=== PATIENT | male | born 1945 | race Caucasian/White ===

== ENCOUNTER → 2016-05-01 | Outpatient (CLI) | payer OTHER ==
[~2016-05-01] MED LIST: AMLO-110 PO; ASCA500 PO; ASPI81TA28 PO; BCTROWC; CLB/200 PO; CTP1 PO; DPKSR250 PO; FEXO-101 PO; FINA5TAB PO; HYDC25 PO; KETO0.0216 OP; LABE1TAB28 PO; LEVO137T3 PO; MOEX15TA4 PO; MULT-506 PO; NITR0.4S UT; OMEG10007 PO; POTA20TA16 PO; RANI300T2 PO
--- NOTE | 2016-05-01 12:40 | DIAGNOSTIC IMAGING REPORT ---
Study: CT sinuses with three-dimensional reconstruction. Using protocol. INDICATION: Chronic sinusitis. FINDINGS: There is acquired transaxially with multi axial reformatted images. Images acquired per fusion protocol. Comparison to a prior study of 12/28/2015 There are findings suggesting partial ethmoidectomies. Hyperplastic change and a polypoid change of the nasal turbinates are present. This appears similar compared to the prior study. The ostiomeatal units are occluded bilaterally. This is unchanged. Orbital margins appear to be intact. There is no evidence for bony destructive process.\E\Sinuses are considered generally clear. Sphenoid and frontal sinuses are also clear. 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 2. Moderate hyperplastic polypoid change of the nasal turbinates similar as compared to the prior exam. 3. All remaining sinuses are considered clear. 4. Very mild nasal septal displacement to the left unchanged. 5. The ostiomeatal units demonstrate soft tissue occlusion Electronically signed by: Pedro Berg M.D. 05/01/2016 12:38 PM Dictated Date/Time: 05/01/2016 12:32 PM
== END | disposition home or self-care (01) ==
LOC: C.CTS 11:59
PROVIDERS: ATTEND Surgery
DX: J32.9 Chronic sinusitis, unspecified (principal)

== ENCOUNTER → 2016-06-07 | Day surgery (SDC) | payer OTHER ==
[2016-05-18 12:05] VITALS: Ht 167.6 cm; Wt 84.1 kg
[~2016-06-07] VITALS: Ht 167.6 cm; Wt 84.1 kg
[~2016-06-07] MED LIST changes: +500ML BSS 0.3ML EPI 1:1000PF IRRIG ONE; +ACETAMINOPHEN 325 MG TAB PO PRN; +AMVISC PLUS 0.8ML SYRINGE INT OCU ONE; +ATROPINE SULFATE 0.1 MG/ML 5ML SYR IV PRN; +BSS FLUSH ONE; +ENDOCOAT 0.85ML SYRINGE INT OCU ONE; +EpINEphrine INJ 1MG/ML AMP 1 MG/ML AMP ONE; +LACTATED RINGER'S 1000ML 500 ML IV SCH; +LIDOCAINE 4% OP SOLN DROP CHARGE ONE; +LIDOCAINE 4% OP SOLN DROP CHARGE OPL SCH; +LIDOCAINE HCL 1% MPF 2 ML VIAL ONE; +MIDAZOLAM HCL 1 MG/ML 2ML VIAL ONE; +MIX: 4ML BSS 1ML EPI 1:1000 PF TOP ONE; +MOXIFLOXACIN OPH SOLN PER DROP CHARGE ONE; +MOXIFLOXACIN OPH SOLN PER DROP CHARGE OPL SCH; +POVIDONE-IODINE OP SOLN 30 ML BTL ONE; +PROPARACAINE 0.5% OP SOLN PER DROP CHARGE OPL SCH; +TOBRAMYCIN/DEXAMETHASONE OPH OINT PER APPLN CHARGE ONE; +VISCOAT 0.5ML SYRINGE INT OCU ONE
--- NOTE | 2016-06-07 09:51 | History & Physical Bridge - SC ---
H&P Re-Evaluation Bridge Note: I have examined the patient, reviewed the History & Physical and in the interval since the performance of the History & Physical I have noted the following changes of clinical significance: No changes noted
[2016-06-07] MEDS: PHENYLEPHRINE HCL 10% OP SOLN PER DROP CHARGE OPL SCH ×3 (09:52→10:02)
[2016-06-07] MEDS: TROPICAMIDE 1% OP SOLN PER DROP CHARGE OPL SCH ×2 (09:53→10:03)
[2016-06-07] MEDS: CYCLOPENTOLATE HCL 1% OP SOLN PER DROP CHARGE OPL SCH ×3 (09:54→10:04)
[2016-06-07] MEDS: MOXIFLOXACIN OPH SOLN PER DROP CHARGE OPL SCH ×3 (09:55→10:05)
--- NOTE | 2016-06-07 11:02 | [facility] Post Operative Brief Note ---
Immediate Operative Summary Operative Date Jun 07, 2016. Pre-Operative Diagnosis Left Eye Cataract Post-Operative Diagnosis Same Procedure(s) Performed Left Eye Cataract Phacoemulsification With Intraocular Lens Implant Surgeon Dr. Franco Physical Therapist Aide Surgeon(s) None Estimated Blood Loss None Findings left cataract Specimens None Complication(s) None Disposition
--- NOTE | 2016-06-07 11:03 | [facility] Operative Report ---
Operative Report Date of Service Jun 07, 2016. Operative Report Phaco with monofocal IOL DATE OF OPERATION: 06/07/16 PREOPERATIVE DIAGNOSIS: Senile nuclear cataract, left eye POSTOPERATIVE DIAGNOSIS: Senile nuclear cataract, left eye PROCEDURE PERFORMED: Phacoemulsification with intraocular lens implantation, left eye SURGEON: Dr. Sukumar Franco ANESTHESIA: Topical with 1% intracameral lidocaine and monitored anesthesia care COMPLICATIONS: None DESCRIPTION OF PROCEDURE: After positively identifying the patient both verbally and by wristband in the preoperative area, the left eye was marked as the operative eye. The patient was then brought back to the operating room by the anesthesia and nursing staff where they were given a drop of Lidocaine and betadine into the operative eye. They were then sterilely prepped and draped in the standard fashion typical for ophthalmic surgery. Steri-strips were placed along the upper eyelids to keep the lashes back, and a lid speculum was placed into the operative eye. At this point, a documented time out was performed with members of the ophthalmology, nursing, and anesthesia staffs all agreeing upon the correct patient, correct location for surgery, correct procedure, and correct type and power of intraocular lens to be implanted. The microscope was then swung into position. First, a paracentesis wound was made using a sideport blade. Then, in sequence, 1% preservative-free lidocaine followed by Endocoat viscoelastic was injected into the anterior chamber. Next , the main incision was made with a keratome blade in triplanar fashion. A Malyugin ring was inserted due to poor pupil dilation. A sharp cystotome was introduced into the eye and used to create a tear in the anterior capsule, which was directed into a continuous curvilinear capsulorrhexis using Utrata forceps. Hydrodissection was then performed with BSS on a flat-tip cannula. Next, the phacoemulsification handpiece was introduced into the eye and used to remove the nucleus in a [id number] fashion. This was done without complication and then the irrigation-aspiration handpiece was introduced into the eye and used to remove all remaining cortical and epinuclear material. Amvisc was then injected into the anterior chamber as well as into the capsular bag and using the lens injector system, an MX60 17.5 D lens, serial number [id number], and expiration date 09/2018 was injected into the capsular bag and rotated into the correct position. The Malyugin ring was removed. Next, the irrigation-aspiration handpiece was used to remove all remaining Amvisc. BSS was used to hydrate the main wound, and then BSS was injected into the paracentesis site to reach physiologic pressure and then the main wound was checked and found to be watertight. The patient was given drops of Vigamox and Tobradex ointment into the operative eye, and then the surrounding area was cleaned and dried. A clear plastic shield was placed over the eye and the patient was then sat up and taken from the operating room by the anesthesia staff having tolerated the procedure well and suffering no complications. DISPOSITION: The patient was returned to the recovery room in stable condition. I attest to the content of the Intraoperative Record and any orders documented therein. Any exceptions are noted below.
--- NOTE | 2016-06-07 11:04 | Discharge Instructions-SurgCtr ---
Discharge Instructions Date of Service Jun 07, 2016. Visit Reason for Visit: Cataract Left Eye Discharge Discharge Diagnosis / Problem: left cataract Discharge Goals Goal(s): Decrease discomfort, Improve function Medications Stopped Medications Name(s): Stopped Tumeric for three days. Activity Recommendations Activity Limitations: as noted below Anesthesia . Post Anesthesia Instructions: If you have had General Anesthesia or IV Sedation: * Do not drive today. * Resume driving when surgeon permits. * Do not make important decisions or sign legal documents today. * Call surgeon for: 1. Temperature elevations greater than 101 degrees F. 2. Uncontrollable pain. 3. Excessive bleeding. 4. Persistent nausea and vomiting. 5. Medication intolerance (nausea, vomiting or rash). * For nausea and vomiting use only clear liquids such as: tea, soda, bouillon until nausea subsides, then gradually increase diet as tolerated. * If you have any concerns or questions, call your surgeon's office. If physician is unavailable and it is an emergency, call 911 or go to the nearest emergency room. . Instructions / Follow-Up Instructions / Follow-Up ACTIVITY RECOMMENDATIONS: * Light activities. * You may walk outside, read, watch television. * You may notice redness on the white part of the eye and some blurry vision - this is normal. MEDICATIONS: Resume previous medications unless instructed otherwise by your surgeon. Start all eye drops at 1 pm today: * Eye drops (today): Prednisone - one drop in operative eye every 2 hours while awake Polytrim - one drop in operative eye every 2 hours while awake SPECIAL CARE INSTRUCTIONS: * Tape plastic shield over eye to sleep at night. Call your doctor at with any concerns or problems. FOLLOW UP VISIT: Follow-up with Dr Franco at [facility] as scheduled. Diet Recommendations Home Diet: no limitations Procedures Procedures Performed: Left Eye Cataract Phacoemulsification With Intraocular Lens Implant Pending Studies Studies pending at discharge: no Medical Emergencies . Who to Call and When: Medical Emergencies: If at any time you feel your situation is an emergency, please call 911 immediately. . Non-Emergent Contact Non-Emergency issues call your: Surgeon . . "Provider Documentation" section prepared by Sukumar Franco.
[2016-06-07 11:06] VITALS: TEMP 36.5
--- NOTE | 2016-06-07 11:22 | Anesthesia Progress Nt - [facility] ---
Anesthesia Post Op Note Date & Time Jun 07, 2016 at 11:21 Vital Signs Pain Intensity: 0 Vital Signs Past 12 Hours Date Time Temp Pulse Resp B/P Pulse Ox O2 Delivery O2 Flow Rate FiO2 06/07/16 11:06 36.5 74 18 148/81 95 Room Air 06/07/16 09:50 36.8 82 20 121/83 95 Room Air Notes Mental Status: alert / awake / arousable, participated in evaluation Pt Amnestic to Procedure: Yes Nausea / Vomiting: adequately controlled Pain: adequately controlled Airway Patency, RR, SpO2: stable & adequate BP & HR: stable & adequate Hydration State: stable & adequate Anesthetic Complications: no major complications apparent
[2016-06-07 11:24] VITALS: BP 148/80; PULSE 67; O2SAT 96
== END | disposition home or self-care (01) ==
LOC: X.SURG 09:17
PROVIDERS: ATTEND Ophthalmology
DX: H25.12 Age-related nuclear cataract, left eye (principal); H57.9 Unspecified disorder of eye and adnexa; H52.209 Unspecified astigmatism, unspecified eye; H43.399 Other vitreous opacities, unspecified eye; I10 Essential (primary) hypertension; I51.9 Heart disease, unspecified; Z90.49 Acquired absence of other specified parts of digestive tract; Z98.890 Other specified postprocedural states

== ENCOUNTER → 2016-07-19 | Day surgery (SDC) | payer OTHER ==
[2016-07-14 10:39] VITALS: Ht 167.6 cm; Wt 84.1 kg
[~2016-07-19] VITALS: Ht 167.6 cm; Wt 84.1 kg
[~2016-07-19] MED LIST changes: -BCTROWC; +FENTANYL CITRATE INJ 50 MCG/1 ML 2 ML VIAL ONE; -LIDOCAINE 4% OP SOLN DROP CHARGE OPL SCH; +LIDOCAINE 4% OP SOLN DROP CHARGE OPR SCH; -MOXIFLOXACIN OPH SOLN PER DROP CHARGE OPL SCH; -PROPARACAINE 0.5% OP SOLN PER DROP CHARGE OPL SCH; +PROPARACAINE 0.5% OP SOLN PER DROP CHARGE OPR SCH; -VISCOAT 0.5ML SYRINGE INT OCU ONE
[2016-07-19] MEDS: PHENYLEPHRINE HCL 2.5% OP SOLN PER DROP CHARGE OPR SCH ×3 (10:21→10:31)
[2016-07-19] MEDS: TROPICAMIDE 1% OP SOLN PER DROP CHARGE OPR SCH ×3 (10:22→10:32)
[2016-07-19] MEDS: CYCLOPENTOLATE HCL 1% OP SOLN PER DROP CHARGE OPR SCH ×3 (10:23→10:33)
[2016-07-19] MEDS: MOXIFLOXACIN OPH SOLN PER DROP CHARGE OPR SCH ×3 (10:24→10:34)
--- NOTE | 2016-07-19 11:38 | [facility] Post Operative Brief Note ---
Immediate Operative Summary Operative Date July 19, 2016. Pre-Operative Diagnosis Right Eye Cataract Post-Operative Diagnosis same Procedure(s) Performed Right Cataract Phacoemulsification With Intraocular Lens Implant Surgeon Dr Franco Assistant Hairstylist Surgeon(s) none Estimated Blood Loss 0 Findings right cataract Specimens none Complication(s) None Disposition
[2016-07-19 11:39] VITALS: TEMP 36.4
--- NOTE | 2016-07-19 11:39 | [facility] Operative Report ---
Operative Report Date of Service July 19, 2016. Operative Report Phaco with monofocal IOL DATE OF OPERATION: 07/19/16 PREOPERATIVE DIAGNOSIS: Senile nuclear cataract, right eye POSTOPERATIVE DIAGNOSIS: Senile nuclear cataract, right eye PROCEDURE PERFORMED: Phacoemulsification with intraocular lens implantation, right eye SURGEON: Dr. Sukumar Franco ANESTHESIA: Topical with 1% intracameral lidocaine and monitored anesthesia care COMPLICATIONS: None DESCRIPTION OF PROCEDURE: After positively identifying the patient both verbally and by wristband in the preoperative area, the right eye was marked as the operative eye. The patient was then brought back to the operating room by the anesthesia and nursing staff where they were given a drop of Lidocaine and betadine into the operative eye. They were then sterilely prepped and draped in the standard fashion typical for ophthalmic surgery. Steri-strips were placed along the upper eyelids to keep the lashes back, and a lid speculum was placed into the operative eye. At this point, a documented time out was performed with members of the ophthalmology, nursing, and anesthesia staffs all agreeing upon the correct patient, correct location for surgery, correct procedure, and correct type and power of intraocular lens to be implanted. The microscope was then swung into position. First, a paracentesis wound was made using a sideport blade. Then, in sequence, 1% preservative-free lidocaine followed by Endocoat viscoelastic was injected into the anterior chamber. Next , the main incision was made with a keratome blade in triplanar fashion. A Malyugin ring was inserted due to poor pupil dilation. A sharp cystotome was introduced into the eye and used to create a tear in the anterior capsule, which was directed into a continuous curvilinear capsulorrhexis using Utrata forceps. Hydrodissection was then performed with BSS on a flat-tip cannula. Next, the phacoemulsification handpiece was introduced into the eye and used to remove the nucleus in a [id number]-yjp-brjxthp fashion. This was done without complication and then the irrigation-aspiration handpiece was introduced into the eye and used to remove all remaining cortical and epinuclear material. Amvisc was then injected into the anterior chamber as well as into the capsular bag and using the lens injector system, an MX60 17.5 D lens, serial number [id number], and expiration date 01/2019 was injected into the capsular bag and rotated into the correct position. The Malyugin ring was removed. Next, the irrigation-aspiration handpiece was used to remove all remaining Amvisc. BSS was used to hydrate the main wound, and then BSS was injected into the paracentesis site to reach physiologic pressure and then the main wound was checked and found to be watertight. The patient was given drops of Vigamox and Tobradex ointment into the operative eye, and then the surrounding area was cleaned and dried. A clear plastic shield was placed over the eye and the patient was then sat up and taken from the operating room by the anesthesia staff having tolerated the procedure well and suffering no complications. DISPOSITION: The patient was returned to the recovery room in stable condition. I attest to the content of the Intraoperative Record and any orders documented therein. Any exceptions are noted below.
--- NOTE | 2016-07-19 11:40 | Discharge Instructions-SurgCtr ---
Discharge Instructions Date of Service July 19, 2016. Visit Reason for Visit: Cataract Right Eye Discharge Discharge Diagnosis / Problem: right cataract Discharge Goals Goal(s): Decrease discomfort, Improve function Activity Recommendations Activity Limitations: as noted below Anesthesia . Post Anesthesia Instructions: If you have had General Anesthesia or IV Sedation: * Do not drive today. * Resume driving when surgeon permits. * Do not make important decisions or sign legal documents today. * Call surgeon for: 1. Temperature elevations greater than 101 degrees F. 2. Uncontrollable pain. 3. Excessive bleeding. 4. Persistent nausea and vomiting. 5. Medication intolerance (nausea, vomiting or rash). * For nausea and vomiting use only clear liquids such as: tea, soda, bouillon until nausea subsides, then gradually increase diet as tolerated. * If you have any concerns or questions, call your surgeon's office. If physician is unavailable and it is an emergency, call 911 or go to the nearest emergency room. . Instructions / Follow-Up Instructions / Follow-Up ACTIVITY RECOMMENDATIONS: * Light activities. * You may walk outside, read, watch television. * You may notice redness on the white part of the eye and some blurry vision - this is normal. MEDICATIONS: Resume previous medications unless instructed otherwise by your surgeon. Start all eye drops at 1:30 pm today: * Eye drops (today): Prednisone - one drop in operative eye every 2 hours while awake Polytrim - one drop in operative eye every 2 hours while awake SPECIAL CARE INSTRUCTIONS: * Tape plastic shield over eye to sleep at night. Call your doctor at with any concerns or problems. FOLLOW UP VISIT: Follow-up with Dr Franco at [facility] as scheduled. Diet Recommendations Home Diet: no limitations Procedures Procedures Performed: Right Cataract Phacoemulsification With Intraocular Lens Implant Pending Studies Studies pending at discharge: no Medical Emergencies . Who to Call and When: Medical Emergencies: If at any time you feel your situation is an emergency, please call 911 immediately. . Non-Emergent Contact Non-Emergency issues call your: Surgeon . . "Provider Documentation" section prepared by Sukumar Franco. .
--- NOTE | 2016-07-19 11:48 | Anesthesia Progress Nt - [facility] ---
Anesthesia Post Op Note Date & Time July 19, 2016 at 11:48 Vital Signs Pain Intensity: 0 Vital Signs Past 12 Hours Date Time Temp Pulse Resp B/P Pulse Ox O2 Delivery O2 Flow Rate FiO2 07/19/16 11:39 36.4 70 18 174/90 96 Room Air 07/19/16 10:13 36.4 69 20 132/86 95 Room Air Notes Mental Status: alert / awake / arousable, participated in evaluation Pt Amnestic to Procedure: Yes Nausea / Vomiting: adequately controlled Pain: adequately controlled Airway Patency, RR, SpO2: stable & adequate BP & HR: stable & adequate Hydration State: stable & adequate Anesthetic Complications: no major complications apparent
[2016-07-19 12:02] VITALS: BP 159/81; PULSE 63; O2SAT 97
== END | disposition home or self-care (01) ==
LOC: X.SURG 09:46
PROVIDERS: ATTEND Ophthalmology
DX: H25.11 Age-related nuclear cataract, right eye (principal); I25.2 Old myocardial infarction; I10 Essential (primary) hypertension; I25.10 Atherosclerotic heart disease of native coronary artery without angina pectoris; G47.33 Obstructive sleep apnea (adult) (pediatric); Z98.42 Cataract extraction status, left eye; E66.9 Obesity, unspecified; Z95.1 Presence of aortocoronary bypass graft; Z88.1 Allergy status to other antibiotic agents

== ENCOUNTER → 2016-12-15 | Day surgery (SDC) | payer OTHER ==
[2016-11-30 10:25] VITALS: Ht 167.6 cm; Wt 89.5 kg
--- NOTE | 2016-11-30 10:46 | PAT Medication Instructions ---
Service Date Nov 30, 2016. Current Home Medication List Amlodipine (Norvasc), 5 MG PO QAM Ascorbic Acid (Vitamin C), 500 MG PO LUNCH Aspirin (Aspirin Ec), 81 MG PO HS Celecoxib (CeleBREX), 200 MG PO QAM Clonidine Hcl (Catapres *), 0.1 MG PO TID Divalproex Sodium Extended Rel (Depakote Extended Rel *), 250 MG PO QAM Fexofenadine HCl (Allergy 24-Hr), 1 TAB PO QAM Finasteride (Proscar), 5 MG PO LUNCH Fish Oil ([place]-3), 1 CAP PO LUNCH Hydrochlorothiazide (Hctz *), 25 MG PO QAM Ketotifen Fumarate (Ophth) (Zaditor 0.025% Oph), 1 DROP OP Q8H PRN for ALLERGIES Labetalol (Normodyne), 200 MG PO BID Levothyroxine Sodium (Levothyroxine Sodium), 1 TAB PO QAM Moexipril Hcl (Moexipril Hcl), 15 MG PO QAM Multivitamin (Multivitamin), 1 TAB PO AFTERNON Nitroglycerin (Nitrostat), 0.4 MG UT PRN Potassium Ext Rel (Klor-Con), 20 MEQ PO AFTERNOON Ranitidine Hcl (Zantac), 300 MG PO LUNCH AND HS Medication Instructions For Your Scheduled Surgery - Hold the following medications as of 12/01/16: Fish Oil ([place]-3), 1 CAP PO LUNCH - Per surgeon's instructions: Aspirin (Aspirin Ec), 81 MG PO HS Celecoxib (CeleBREX), 200 MG PO QAM - Continue as directed: Nitroglycerin (Nitrostat), 0.4 MG UT PRN - Hold the following medications the morning of surgery: Moexipril Hcl (Moexipril Hcl), 15 MG PO QAM Multivitamin (Multivitamin), 1 TAB PO AFTERNON Potassium Ext Rel (Klor-Con), 20 MEQ PO AFTERNOON Fexofenadine HCl (Allergy 24-Hr), 1 TAB PO QAM Ascorbic Acid (Vitamin C), 500 MG PO LUNCH Hydrochlorothiazide (Hctz *), 25 MG PO QAM - Take the following medications the morning of surgery with a sip of water OTHERWISE NOTHING TO EAT OR DRINK AFTER MIDNIGHT: Amlodipine (Norvasc), 5 MG PO QAM Divalproex Sodium Extended Rel (Depakote Extended Rel *), 250 MG PO QAM Labetalol (Normodyne), 200 MG PO BID Levothyroxine Sodium (Levothyroxine Sodium), 1 TAB PO QAM Ketotifen Fumarate (Ophth) (Zaditor 0.025% Oph), 1 DROP OP Q8H PRN for ALLERGIES Finasteride (Proscar), 5 MG PO LUNCH - Take the following medications as scheduled the night before surgery: Ranitidine Hcl (Zantac), 300 MG PO LUNCH AND HS Clonidine Hcl (Catapres *), 0.1 MG PO TID Labetalol (Normodyne), 200 MG PO BID Ketotifen Fumarate (Ophth) (Zaditor 0.025% Oph), 1 DROP OP Q8H PRN for ALLERGIES If you have any questions please call us at [phone] or [phone] or [phone]
[2016-11-30 11:19] LABS: BASO % 0.6 %; BASO ABS # 0.05 K/uL (0-0.2); COMPLETE YES; EOS % 4.8 %; HEMATOCRIT 42.3 % (42-52); IG% 0.6 %; LYMPH % 16.1 %; LYMPH ABS # 1.42 K/uL (1.2-3.4); MEAN CELL VOLUME 88.9 fL (80-100); MEAN CORPUSCULAR HEMOGLOBIN 30.7 pg (25-34); MEAN CORPUSCULAR HGB CONC 34.5 g/dl (32-36); MEAN PLATELET VOLUME 10.7 fL (7.4-10.4); NEUT % 67.9 %; PLATELET COUNT 284 K/uL (130-400); RED BLOOD COUNT 4.76 M/uL (4.7-6.1); WHITE BLOOD COUNT 8.83 K/uL (4.8-10.8)
[2016-11-30 15:31] LABS: BUN/CREATININE RATIO 14.6 (10-20); CALCIUM 9.2 mg/dl (8.5-10.1); CREATININE 0.97 mg/dl (0.60-1.40); POTASSIUM 3.6 mmol/L (3.5-5.1)
[~2016-12-15] VITALS: Ht 167.6 cm; Wt 89.5 kg
[~2016-12-15] MED LIST changes: -500ML BSS 0.3ML EPI 1:1000PF IRRIG ONE; -ACETAMINOPHEN 325 MG TAB PO PRN; +ACETAMINOPHEN 500 MG TAB PO PRN; -AMVISC PLUS 0.8ML SYRINGE INT OCU ONE; -BSS FLUSH ONE; +DEXAMETHASONE SOD INJ 4 MG/ML VIAL ONE; -ENDOCOAT 0.85ML SYRINGE INT OCU ONE; +EpHEDrine SULFATE INJ 50 MG/ML AMP IV PRN; -EpINEphrine INJ 1MG/ML AMP 1 MG/ML AMP ONE; +FENTANYL CITRATE INJ 50 MCG/1 ML 2 ML VIAL IV PRN; +FLUMAZENIL 0.1 MG/1 ML 10 ML VIAL IV PRN; +LABETALOL HCL IV 5 MG/ML 20ML IV PRN; +LACTATED RINGER'S 1000ML 1,000 ML IV SCH; -LACTATED RINGER'S 1000ML 500 ML IV SCH; -LIDOCAINE 4% OP SOLN DROP CHARGE ONE; -LIDOCAINE 4% OP SOLN DROP CHARGE OPR SCH; -LIDOCAINE HCL 1% MPF 2 ML VIAL ONE; +LIDOCAINE HCL 2% 2 ML VIAL (20MG/ML) ONE; -MIX: 4ML BSS 1ML EPI 1:1000 PF TOP ONE; -MOXIFLOXACIN OPH SOLN PER DROP CHARGE ONE; +NALOXONE HCL 0.4 MG/1 ML VIAL/CARP IV PRN; +OFLOXACIN 0.3% OP SOLN 5 ML BTL ONE; +ONDANSETRON INJ 2 MG/ML 2 ML VIAL IV PRN; +ONDANSETRON INJ 2 MG/ML 2 ML VIAL ONE; +OXYMETAZOLINE HCL 0.05% NA SPR 15 ML BTL ONE; -POVIDONE-IODINE OP SOLN 30 ML BTL ONE; +PROMETHAZINE HCL INJ 12.5 MG in SODIUM CHLORIDE 0.9% 50ML 50 ML IV PRN; -PROPARACAINE 0.5% OP SOLN PER DROP CHARGE OPR SCH; +PROPOFOL IV EMULSION 10 MG/ML 20 ML VIAL IV ONE; -TOBRAMYCIN/DEXAMETHASONE OPH OINT PER APPLN CHARGE ONE
--- NOTE | 2016-12-15 09:16 | [facility] Operative Report ---
Operative Report Operative Date Dec 15, 2016. Pre-Operative Diagnosis L COM WITH EFFUSION, L ETD, L RONI, L MIXED HEARING LOSS Post-Operative Diagnosis SAME Procedure(s) Performed LEFT MYRINGOTOMY AND T-TUBE PLACEMENT Surgeon KASSANDRA Manufacturing Finance Manager Surgeon(s) NONE Estimated Blood Loss 0 Findings L RONI Specimens NONE I attest to the content of the Intraoperative Record and any orders documented therein. Any exceptions are noted below.
--- NOTE | 2016-12-15 09:18 | Discharge Instructions ---
Discharge Instructions Date of Service Dec 15, 2016. Admission Reason for Admission: Chronic O.m. With Effusion Left Hear; Mixed H/L Discharge Discharge Diagnosis / Problem: SAME Discharge Goals Goal(s): Therapeutic intervention Activity Recommendations Activity Limitations: as noted below LEFT DRY EAR PRECAUTIONS WHILE TUBE IN PLACE . Current Hospital Diet Patient's current hospital diet: Discharge Diet Recommended Diet: Regular Diet Procedures Procedures Performed: LEFT MYRINGOTOMY AND T-TUBE PLACEMENT Pending Studies Studies pending at discharge: no Medical Emergencies . Who to Call and When: Medical Emergencies: If at any time you feel your situation is an emergency, please call 911 immediately. . Non-Emergent Contact Non-Emergency issues call your: Surgeon . . "Provider Documentation" section prepared by Jose L Hutson. . VTE Core Measure Inpt VTE Proph given/why not?: SCD's
[2016-12-15 09:57] VITALS: TEMP 36.5
--- NOTE | 2016-12-15 10:12 | OPERATIVE REPORT ---
DATE OF OPERATION: 12/15/2016 PREOPERATIVE DIAGNOSES: 1. Left chronic otitis media with effusion. 2. Left mixed hearing loss. POSTOPERATIVE DIAGNOSES: 1. Left chronic otitis media with effusion. 2. Left mixed hearing loss. PROCEDURE: Left myringotomy and T-tube placement. SURGEON: Dr. Hutson. ANESTHESIA: General masked with IV sedation. ESTIMATED BLOOD LOSS: Zero. FINDINGS: Left serous middle ear effusion. SPECIMENS: None. COMPLICATIONS: None. INDICATIONS: The patient is a 70-year-old male with a history of recurrent left serous otitis media/chronic otitis media with effusion which has been refractory to maximal medical therapy including steroids. He underwent previous left myringotomy and tube placement in the office and asked for the tube to be removed. After the tube was removed the patient had recurrent serous effusion and it was recommended given his multiple recurrences that he undergo a T-tube placement in the operating room. He presents for the above-mentioned procedure on an outpatient elective basis. DESCRIPTION OF PROCEDURE: After informed consent had been obtained from the patient, the patient was wheeled to the operating room. The patient was on his [facility]. After administration of general masked anesthesia and IV sedation, the patient's head was gently turned to the right and a speculum was inserted into the left external auditory canal. The operating microscope was wheeled in and used to perform the procedure. A myringotomy knife was used to make a radial incision in the anterior inferior quadrant of the tympanic membrane and the middle ear space was suctioned free of a serous middle ear effusion. A silicone Garcia T-tube was then placed with the T-tube on site construction superintendent. Floxin drops were instilled into the middle ear space and a cotton ball was placed into the conchal bowl. This marked the end of the case. The patient tolerated the procedure well. There were no apparent complications. The patient was transferred to the recovery room in stable condition. I attest to the content of the Intraoperative Record and any orders documented therein. Any exception s are noted below.
--- NOTE | 2016-12-15 10:16 | Anesthesia Progress Nt - [facility] ---
Anesthesia Post Op Note Date & Time Dec 15, 2016 at 10:16 Vital Signs Pain Intensity: 0 Vital Signs Past 12 Hours Date Time Temp Pulse Resp B/P (MAP) Pulse Ox O2 Delivery O2 Flow Rate FiO2 12/15/16 09:57 36.5 76 18 165/97 (119) 96 Room Air 12/15/16 09:51 139/100 12/15/16 09:51 139/100 12/15/16 09:50 74 18 94 12/15/16 09:50 73 18 12/15/16 09:50 73 18 12/15/16 09:50 74 18 94 12/15/16 09:48 36.3 72 12 140/72 96 Mask 12/15/16 09:46 140/72 12/15/16 09:46 140/72 12/15/16 09:45 69 15 99 12/15/16 09:45 69 15 12/15/16 09:45 69 15 12/15/16 09:45 69 15 99 12/15/16 09:41 131/78 12/15/16 09:41 131/78 12/15/16 09:40 72 13 12/15/16 09:40 72 13 12/15/16 09:40 73 13 94 12/15/16 09:40 73 13 94 12/15/16 09:36 123/77 12/15/16 09:36 123/77 12/15/16 09:35 76 17 12/15/16 09:35 76 17 96 12/15/16 09:35 76 17 12/15/16 09:35 76 17 96 12/15/16 09:31 131/69 12/15/16 09:31 131/69 12/15/16 09:30 71 11 12/15/16 09:30 70 11 97 12/15/16 09:30 70 11 97 12/15/16 09:30 71 11 12/15/16 09:26 125/71 12/15/16 09:26 125/71 12/15/16 09:25 36.3 81 12 125/71 95 Mask 6 12/15/16 07:25 36.5 64 16 151/80 (103) 97 Room Air Notes Mental Status: alert / awake / arousable, participated in evaluation Pt Amnestic to Procedure: Yes Nausea / Vomiting: adequately controlled Pain: adequately controlled Airway Patency, RR, SpO2: stable & adequate BP & HR: stable & adequate Hydration State: stable & adequate Anesthetic Complications: no major complications apparent
[2016-12-15 10:22] VITALS: BP 152/80; PULSE 62; O2SAT 98
== END | disposition home or self-care (01) ==
LOC: X.SURG 07:04
DX: H65.492 Other chronic nonsuppurative otitis media, left ear (principal); H90.72 Mixed conductive and sensorineural hearing loss, unilateral, left ear, with unrestricted hearing on the contralateral side; I25.10 Atherosclerotic heart disease of native coronary artery without angina pectoris; I10 Essential (primary) hypertension; E03.9 Hypothyroidism, unspecified; J38.00 Paralysis of vocal cords and larynx, unspecified; K21.9 Gastro-esophageal reflux disease without esophagitis; G47.30 Sleep apnea, unspecified; G40.909 Epilepsy, unspecified, not intractable, without status epilepticus; G25.81 Restless legs syndrome; I87.2 Venous insufficiency (chronic) (peripheral); F41.9 Anxiety disorder, unspecified; Z79.899 Other long term (current) drug therapy

== ENCOUNTER → 2017-03-23 | Outpatient (CLI) | payer OTHER ==
[~2017-03-23] MED LIST changes: -ACETAMINOPHEN 500 MG TAB PO PRN; -ATROPINE SULFATE 0.1 MG/ML 5ML SYR IV PRN; -DEXAMETHASONE SOD INJ 4 MG/ML VIAL ONE; -EpHEDrine SULFATE INJ 50 MG/ML AMP IV PRN; -FENTANYL CITRATE INJ 50 MCG/1 ML 2 ML VIAL IV PRN; -FENTANYL CITRATE INJ 50 MCG/1 ML 2 ML VIAL ONE; -FLUMAZENIL 0.1 MG/1 ML 10 ML VIAL IV PRN; -LABETALOL HCL IV 5 MG/ML 20ML IV PRN; -LACTATED RINGER'S 1000ML 1,000 ML IV SCH; -LIDOCAINE HCL 2% 2 ML VIAL (20MG/ML) ONE; -MIDAZOLAM HCL 1 MG/ML 2ML VIAL ONE; -NALOXONE HCL 0.4 MG/1 ML VIAL/CARP IV PRN; -OFLOXACIN 0.3% OP SOLN 5 ML BTL ONE; -ONDANSETRON INJ 2 MG/ML 2 ML VIAL IV PRN; -ONDANSETRON INJ 2 MG/ML 2 ML VIAL ONE; -OXYMETAZOLINE HCL 0.05% NA SPR 15 ML BTL ONE; -PROMETHAZINE HCL INJ 12.5 MG in SODIUM CHLORIDE 0.9% 50ML 50 ML IV PRN; -PROPOFOL IV EMULSION 10 MG/ML 20 ML VIAL IV ONE
== END | disposition home or self-care (01) ==
LOC: C.PATHSPEC 13:24
PROVIDERS: ATTEND Dermatology
DX: R23.8 Other skin changes (principal); L72.0 Epidermal cyst

== ENCOUNTER → 2017-06-28 | Day surgery (SDC) | payer OTHER ==
[2017-06-12 10:48] VITALS: Ht 167.6 cm; Wt 84.1 kg
[~2017-06-28] VITALS: Ht 167.6 cm; Wt 84.1 kg
[~2017-06-28] MED LIST changes: +BENZ1CAP90 PO; +CLR10 PO; +CTP/1 PO; -CTP1 PO; +CYCL0.052 OPB; +DIVA250T PO; +DOXY100C76 PO; -DPKSR250 PO; -FEXO-101 PO; +FLUT0.15; -HYDC25 PO; +HYDR2.5L TOP; +HYDR25TA4 PO; -KETO0.0216 OP; +LABETALOL HCL IV 5 MG/ML 20ML IV ONE; +LIDOCAINE HCL 2% 2 ML VIAL (20MG/ML) ONE; +MIDAZOLAM HCL 1 MG/ML 2ML VIAL ONE; +NZRSHM TOP; +ONDANSETRON INJ 2 MG/ML 2 ML VIAL ONE; +POTA-639 PO; -POTA20TA16 PO; +PROMSYP2 PO; +PROPOFOL IV EMULSION 10 MG/ML 20 ML VIAL IV ONE
[2017-06-28 14:35] VITALS: TEMP 36.6
--- NOTE | 2017-06-28 14:56 | Endo History and Physical ---
History & Physical Date of Service: Jun 28, 2017. Chief Complaint: DYSPHAGIA Referring Physician: DR. CANNON History of Present Illness 71 yo CM who presents for EGD secondary to dysphagia. Past Medical History Neurological Disorder, Angioplasty/Stent, Endocrine Disorder, Male Genitourinary Prob., ASHD, Gastrointestinal Disorder, Anxiety, Reflux, Seizure Disorder, Cancer, High Cholesterol, Sleep Apnea, Heart Disease, Hypertension, Thyroid Disease, Kidney Disease, MS Past Surgical History Hx Cardiac Surgery: Yes (HEART CATH, STENTS X2 ) Hx Internal Defibrillator: No Hx Pacemaker: No Hx Abdominal Surgery: Yes (APPY, HERNIA REPAIR (UMBILICAL AND RIGHT )) Hx Post-Op Nausea and Vomiting: No Hx Cancer Surgery: Yes (PARTIAL NEPHRECTOMY ,RADICAL THYROIDECTOMY, VOCAL CORD CANCER SURGERY) Hx Thoracic Surgery: No Hx Orthopedic: Yes (RT KNEE ARTHROSCOPY, LT/RT ELBOW BICEP REPAIR) Hx Urinary Tract Surgery: No (LT RENAL ARTERY STENT PLACED) Family History None Social History Smoking Status: Never Smoker Hx Substance Use: No Hx Alcohol Use: No Allergies Coded Allergies: Amoxicillin (Verified Allergy, Intermediate, Rash,Hives, 06/22/17) Carbamazepine (Verified Allergy, Intermediate, RASH, 06/22/17) Phenytoin (Verified Allergy, Intermediate, RASH, 06/22/17) Tramadol (Verified Allergy, Mild, RASH AND ITCHING, 06/22/17) Carbidopa (Verified Allergy, Unknown, ? reaction, 06/22/17) Replaces SINEMET CR 50 Ciprofloxacin (Verified Allergy, Unknown, SWELLING OF FACE AND MOUTH, ) Hydrocodone (Verified Allergy, Unknown, RASH, 06/22/17) Levodopa (Verified Allergy, Unknown, SINEMET CR, 06/22/17) Replaces SINEMET CR 50 Lisinopril (Verified Allergy, Unknown, dizziness, 06/22/17) Losartan (Verified Allergy, Unknown, HIVES, 06/22/17) Oxycodone (Verified Allergy, Unknown, pruritis, 06/22/17) Statins (Verified Allergy, Unknown, myalgias, 06/22/17) Sulfa Antibiotics (Verified Allergy, Unknown, rash per cardio note , ) Tamsulosin (Verified Allergy, Unknown, ? reaction, 06/22/17) Zaleplon (Verified Allergy, Unknown, HYPER, 06/22/17) POLLEN (Verified Adverse Reaction, Unknown, upper respiratory sx, 06/22/17) Thiopental (Verified Adverse Reaction, Unknown, GI SYMPTOMS, 06/22/17) Current Medications Reported Home Medications Medications Dose Route/Sig Max Daily Dose Days Date Category Dose Instructions Promethazine-Dm 1 Syp Syp 5 Ml PO Q4H PRN 4 06/22/17 Reported Monodox (Doxycycline Monohydrate) 100 Mg Cap 100 Mg PO UD 06/22/17 Reported FOR SINUS CONGESTION VIRUS Ketoconazole 60 Appln/120 Ml Sham 1 Dose TOP WEEKLY 06/22/17 Reported Hydrocortisone (Hydrocortisone (Topical)) 2.5 % Lot 1 Appln TOP BID PRN 10 06/22/17 Reported Flonase Allergy Relief (Fluticasone Propionate (Nasal)) 50 Mcg/Act Spr 1 [place] NA DAILY PRN 06/22/17 Reported Tessalon Perles (Benzonatate) 200 Mg Cap 200 Mg PO UD PRN 06/22/17 Reported Restasis (Cyclosporine (Ophth)) 0.05 % Emu 1 Drop OPB BID 06/12/17 Reported Hctz (Hydrochlorothiazide) 25 Mg Tab 0.5 Tab PO QAM 06/12/17 Reported Claritin (Loratadine) 10 Mg Tab 10 Mg PO QAM 06/12/17 Reported Depakote Er (Divalproex Sodium) 250 Mg Tab 1 Tab PO QAM 06/12/17 Reported Catapres (Clonidine Hcl) 0.1 Mg Tab 0.1 Mg PO BID 06/12/17 Reported CeleBREX (Celecoxib) 200 Mg Cap 200 Mg PO DAILY IN AFTERNOON 06/12/17 Reported Levothyroxine Sodium 137 Mcg Tab 1 Tab PO QAM 06/16/15 Reported Vitamin C (Ascorbic Acid) 500 Mg Tab 500 Mg PO LUNCH 04/30/13 Reported Zantac (Ranitidine HCl) 300 Mg Tab 300 Mg PO LUNCH AND HS 04/30/13 Reported Nitrostat (Nitroglycerin) 0.4 Mg Sub 0.4 Mg UT PRN 04/30/13 Reported Moexipril Hcl 15 Mg Tab 15 Mg PO QAM 04/30/13 Reported Klor-Con (Potassium Chloride) 20 Meq Tabcr 20 Meq PO DIRECTED 04/30/13 Reported 2 TAB IN AFTERNOON 1 TAB AT SUPPER [place]-3 (Fish Oil) 1 Ea Cap 1 Cap PO LUNCH 04/30/13 Reported Proscar (Finasteride) 5 Mg Tab 5 Mg PO LUNCH 04/30/13 Reported Aspirin Ec (Aspirin) 81 Mg Tab 81 Mg PO HS 04/30/13 Reported Norvasc (Amlodipine Besylate) 5 Mg Tab 5 Mg PO BID 04/30/13 Reported Normodyne (Labetalol HCl) 200 Mg Tab 200 Mg PO BID 04/30/13 Reported Multivitamin (Multivitamins) Tab 1 Tab PO AFTERNON 02/16/10 Reported Vital Signs Weight (Kilograms): 84.09 Height (Feet): 5 Height (Inches): 6 Date Time Temp Pulse Resp B/P (MAP) Pulse Ox O2 Delivery O2 Flow Rate FiO2 06/28/17 14:35 36.6 71 20 174/96 (122) 97 Room Air Physical Exam General Appearance: WD/WN, no apparent distress Respiratory/Chest: Auscultation: breath sounds normal Cardiovascular: Heart Auscultation: RRR Abdomen: Bowel Sounds: normal Inspection & Palpation: soft, non-distended, no tenderness, guarding & rebound Assessment and Plan Assessment: 71 yo CM who presents for EGD secondary to dysphagia. Plan: Proceed with EGD.
--- NOTE | 2017-06-28 16:31 | GI REPORT ---
Procedure Date: 06/28/2017 3:30 PM Procedure: Upper GI endoscopy Indications: Dysphagia Medicines: Monitored Anesthesia Care Complications: No immediate complications. Estimated Blood Loss: Estimated blood loss: none. Procedure: Pre-Anesthesia Assessment: - Prior to the procedure, a History and Physical was performed, and patient medications and allergies were reviewed. The patient's tolerance of previous anesthesia was also reviewed. The risks and benefits of the procedure and the sedation options and risks were discussed with the patient. All questions were answered, and informed consent was obtained. Prior Anticoagulants: The patient has taken aspirin, last dose was 1 day prior to procedure. ASA Grade Assessment: III - A patient with severe systemic disease. After reviewing the risks and benefits, the patient was deemed in satisfactory condition to undergo the procedure. After obtaining informed consent, the endoscope was passed under direct vision. Throughout the procedure, the patient's blood pressure, pulse, and oxygen saturations were monitored continuously. The scope was introduced through the mouth, and advanced to the second part of duodenum. The upper GI endoscopy was accomplished without difficulty. The patient tolerated the procedure well. Findings: One benign-appearing, intrinsic stenosis was found. This stenosis was moderately severe and measured 1.2 cm (inner diameter) x 1 cm (in length). The stenosis was traversed. A guidewire was placed and the scope was withdrawn. Dilation was performed with a Savary dilator with no resistance at 45 Fr and 48 Fr. Moderately severe esophagitis with no bleeding was found. The stomach was normal. The examined duodenum was normal. Impression: - Benign-appearing esophageal stenosis. Dilated. - Moderately severe reflux esophagitis. - Normal stomach. - Normal examined duodenum. - No specimens collected. Recommendation: - Resume previous diet. - Continue present medications. - Repeat upper endoscopy PRN for retreatment. - Return to primary care physician PRN. Bradford Sen DO 06/28/2017 4:30:56 PM This report has been signed electronically. Note Initiated On: 06/28/2017 3:30 PM I attest to the content of the Intraoperative Record and orders documented therein, exceptions below
--- NOTE | 2017-06-28 16:34 | Discharge Instructions ---
Endoscopy Patient Instructions Date / Procedure(s) Performed Jun 28, 2017. EGD Allergy Information Coded Allergies: Amoxicillin (Verified Allergy, Intermediate, Rash,Hives, 06/22/17) Carbamazepine (Verified Allergy, Intermediate, RASH, 06/22/17) Phenytoin (Verified Allergy, Intermediate, RASH, 06/22/17) Tramadol (Verified Allergy, Mild, RASH AND ITCHING, 06/22/17) Carbidopa (Verified Allergy, Unknown, ? reaction, 06/22/17) Replaces SINEMET CR 50 Ciprofloxacin (Verified Allergy, Unknown, SWELLING OF FACE AND MOUTH, ) Hydrocodone (Verified Allergy, Unknown, RASH, 06/22/17) Levodopa (Verified Allergy, Unknown, SINEMET CR, 06/22/17) Replaces SINEMET CR 50 Lisinopril (Verified Allergy, Unknown, dizziness, 06/22/17) Losartan (Verified Allergy, Unknown, HIVES, 06/22/17) Oxycodone (Verified Allergy, Unknown, pruritis, 06/22/17) Statins (Verified Allergy, Unknown, myalgias, 06/22/17) Sulfa Antibiotics (Verified Allergy, Unknown, rash per cardio note , ) Tamsulosin (Verified Allergy, Unknown, ? reaction, 06/22/17) Zaleplon (Verified Allergy, Unknown, HYPER, 06/22/17) POLLEN (Verified Adverse Reaction, Unknown, upper respiratory sx, 06/22/17) Thiopental (Verified Adverse Reaction, Unknown, GI SYMPTOMS, 06/22/17) Discharge Date / Findings Jun 28, 2017. Esophageal stricture s/p dilation Esophagitis Medication Instructions Stopped Medication(s): ASPIRIN 06/27/17 OK to resume all medications today as prescribed Reported Home Medications Medications Dose Route/Sig Max Daily Dose Days Date Category Dose Instructions Promethazine-Dm 1 Syp Syp 5 Ml PO Q4H PRN 4 06/22/17 Reported Monodox (Doxycycline Monohydrate) 100 Mg Cap 100 Mg PO UD 06/22/17 Reported FOR SINUS CONGESTION VIRUS Ketoconazole 60 Appln/120 Ml Sham 1 Dose TOP WEEKLY 06/22/17 Reported Hydrocortisone (Hydrocortisone (Topical)) 2.5 % Lot 1 Appln TOP BID PRN 10 06/22/17 Reported Flonase Allergy Relief (Fluticasone Propionate (Nasal)) 50 Mcg/Act Spr 1 [place] NA DAILY PRN 06/22/17 Reported Tessalon Perles (Benzonatate) 200 Mg Cap 200 Mg PO UD PRN 06/22/17 Reported Restasis (Cyclosporine (Ophth)) 0.05 % Emu 1 Drop OPB BID 06/12/17 Reported Hctz (Hydrochlorothiazide) 25 Mg Tab 0.5 Tab PO QAM 06/12/17 Reported Claritin (Loratadine) 10 Mg Tab 10 Mg PO QAM 06/12/17 Reported Depakote Er (Divalproex Sodium) 250 Mg Tab 1 Tab PO QAM 06/12/17 Reported Catapres (Clonidine Hcl) 0.1 Mg Tab 0.1 Mg PO BID 06/12/17 Reported CeleBREX (Celecoxib) 200 Mg Cap 200 Mg PO DAILY IN AFTERNOON 06/12/17 Reported Levothyroxine Sodium 137 Mcg Tab 1 Tab PO QAM 06/16/15 Reported Vitamin C (Ascorbic Acid) 500 Mg Tab 500 Mg PO LUNCH 04/30/13 Reported Zantac (Ranitidine HCl) 300 Mg Tab 300 Mg PO LUNCH AND HS 04/30/13 Reported Nitrostat (Nitroglycerin) 0.4 Mg Sub 0.4 Mg UT PRN 04/30/13 Reported Moexipril Hcl 15 Mg Tab 15 Mg PO QAM 04/30/13 Reported Klor-Con (Potassium Chloride) 20 Meq Tabcr 20 Meq PO DIRECTED 04/30/13 Reported 2 TAB IN AFTERNOON 1 TAB AT SUPPER [place]-3 (Fish Oil) 1 Ea Cap 1 Cap PO LUNCH 04/30/13 Reported Proscar (Finasteride) 5 Mg Tab 5 Mg PO LUNCH 04/30/13 Reported Aspirin Ec (Aspirin) 81 Mg Tab 81 Mg PO HS 04/30/13 Reported Norvasc (Amlodipine Besylate) 5 Mg Tab 5 Mg PO BID 04/30/13 Reported Normodyne (Labetalol HCl) 200 Mg Tab 200 Mg PO BID 04/30/13 Reported Multivitamin (Multivitamins) Tab 1 Tab PO AFTERNON 02/16/10 Reported Provider Instructions Activity Restrictions - No exercising or heavy lifting for 24 hours. - Do not drink alcohol the day of the procedure. - Do not drive a car or operate machinery until the day after the procedure. - Do not make any important decisions or sign important papers in 24 hours after the procedure. Following Day: - Return to full activity which may include returning to work/school. Diet Start your diet with liquids and light foods (jello, soup, juice, toast). Then eat your usual diet if not nauseated. Treatment For Common After Affects For mild abdominal pain, bloating, or excessive gas: - Rest - Eat lightly - Lie on right side Follow-Up Information Follow-up with DR. CANNON as scheduled Anesthesia Information What You Should Know You have had a procedure that required some medicine to reduce anxiety and discomfort. This treatment is called moderate sedation. After receiving the treatment, you may be sleepy, but you will be able to breathe on your own. The effects of the treatment may last for several hours. Follow these instructions along with Activity/Diet recommendations noted above: * Do NOT do anything where dizziness or clumsiness would be dangerous. * Rest quietly at home today, then you can be up and about tomorrow. * Have a responsible person stay with you the rest of today. * You may have had an I.V. today. If so, you may take the dressing off later today. Recommendations Call your doctor if: * Trouble breathing * Continuous vomiting for more than 24 hours * Temperature above 101 degrees * Severe abdominal pain or bloating * Pain not relieved by pain medicine ordered * There is increased drainage or redness from any incision * A large amount of rectal bleeding greater than 2-3 tablespoons. (If you had a polyp/s removed or have hemorrhoids, a small amount of blood - from the rectum is to be expected.) * You have any unanswered questions or concerns. IN THE EVENT OF A SERIOUS EMERGENCY, GO TO THE NEAREST EMERGENCY ROOM Your discharge instructions were prepared by provider Bradford Sen. Patient Instructions Signature Page Kwame Carrillo Patient (or Guardian) Signature/Date: I have read and understand the instructions given to me by my caregivers. Caregiver/RN/Doctor Signature/Date: The above-named patient and/or guardian has received patient instructions on this date. + Original Patient Signature Page (only) stays with chart. Please make copy for patient.
[2017-06-28 16:55] VITALS: BP 166/96; PULSE 77; O2SAT 95
--- NOTE | 2017-06-28 17:04 | Anesthesiology Progress Note ---
Anesthesia Post Op Note Date & Time Jun 28, 2017 at 16:59 Vital Signs Pain Intensity: 0 Vital Signs Past 12 Hours Date Time Temp Pulse Resp B/P (MAP) Pulse Ox O2 Delivery O2 Flow Rate FiO2 06/28/17 16:55 77 18 166/96 (119) 95 Room Air 06/28/17 16:40 79 18 181/99 (126) 95 Room Air 06/28/17 16:25 80 16 159/96 (117) 96 Nasal Cannula 3 06/28/17 14:35 36.6 71 20 174/96 (122) 97 Room Air Notes Mental Status: alert / awake / arousable, participated in evaluation Pt Amnestic to Procedure: Yes Nausea / Vomiting: adequately controlled Pain: adequately controlled Airway Patency, RR, SpO2: stable & adequate BP & HR: stable & adequate, see Notes Hydration State: stable & adequate Anesthetic Complications: no major complications apparent The patient had a brief episode of desaturation during the procedure. I was called to the room and upon my arrival the patient mask ventilated with the Ambu bag. His SpO2 was in the 90s. The patient tolerated the rest of the procedure with SpO2 in the 90s although he was noted to have a strong gag reflex. He was also noted to be hypertensive and remained hypertensive in recovery. He was given a total of 20 mg IV labetalol in recovery which brought his diastolic blood pressure below 100. The patient is otherwise awake and comfortable and his other vitals are stable. The patient was counseled to take his blood pressure medicine tonight to which he agreed.
== END | disposition home or self-care (01) ==
LOC: C.GI 13:53
PROVIDERS: ATTEND Internal Medicine
DX: R13.10 Dysphagia, unspecified (principal); K21.9 Gastro-esophageal reflux disease without esophagitis; I25.10 Atherosclerotic heart disease of native coronary artery without angina pectoris; F41.9 Anxiety disorder, unspecified; G40.909 Epilepsy, unspecified, not intractable, without status epilepticus; E78.00 Pure hypercholesterolemia, unspecified; G47.30 Sleep apnea, unspecified; I11.9 Hypertensive heart disease without heart failure; N28.9 Disorder of kidney and ureter, unspecified; E07.9 Disorder of thyroid, unspecified; Z90.49 Acquired absence of other specified parts of digestive tract; Z98.890 Other specified postprocedural states; Z95.5 Presence of coronary angioplasty implant and graft; Z88.1 Allergy status to other antibiotic agents; Z88.8 Allergy status to other drugs, medicaments and biological substances; Z88.5 Allergy status to narcotic agent; Z88.2 Allergy status to sulfonamides; Z79.82 Long term (current) use of aspirin; Z79.899 Other long term (current) drug therapy; I25.2 Old myocardial infarction